=== PATIENT | male | born 1965 | race Asian ===

== ENCOUNTER 2020-02-03 16:47 | Emergency (ER) | payer SELFPAY ==
[2020-02-03] MEDS ORDERED: KETOROLAC 30 MG/1 ML INJ IV ONE (17:13)
[2020-02-03] MEDS ORDERED: HYDROmorphone 1 MG/1 ML INJ IV ONE ×2 (17:13→17:46)
[2020-02-03] MEDS ORDERED: SODIUM CHLORIDE 0.9% 1000 ML 1,000 ML IV ONE ×2 (17:13)
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
[2020-02-03 18:41] LABS: Hematocrit 35.9 % (35.5-45.6); Hemoglobin 11.8 gm/dl (11.8-15.2); Mean Corpuscular HGB Conc 33 % (32-34); Mean Corpuscular Volume 79 fl (84-94); Platelet Count 244 K/mm3 (140-440); Red Blood Count 4.54 M/mm3 (3.65-5.03)
[2020-02-03 18:50] LABS: BUN/Creatinine Ratio 20; Blood Urea Nitrogen 16 mg/dL (9-20); Calcium 9.3 mg/dL (8.4-10.2); Hemolysis Index 2
[2020-02-03 18:54] LABS: Basophils # (Auto) 0.1 K/mm3 (0.0-0.1); Basophils % (Auto) 0.5 % (0.0-1.8); Eosinophils # (Auto) 0.2 K/mm3 (0.0-0.4); Eosinophils % (Auto) 1.3 % (0.0-4.3); Lymphocytes % (Auto) 32.3 % (13.4-35.0); Monocytes # (Auto) 1.1 K/mm3 (0.0-0.8); Monocytes % (Auto) 8.6 % (0.0-7.3)
[2020-02-03] MEDS ORDERED: LACTATED RINGERS 1,000 ML IV SCH (19:00)
[2020-02-03] MEDS ORDERED: SODIUM CHLORIDE IRRI 500 ML 500 ML IR ONE (19:25)
[2020-02-03 23:31] VITALS: BP 148/90
== END 2020-02-03 20:05 | disposition designated cancer center or children's hospital (05) ==
LOC: ED 16:47
DX: T23.202A Burn of second degree of left hand, unspecified site, initial encounter (principal); T23.201A Burn of second degree of right hand, unspecified site, initial encounter; T24.201A Burn of second degree of unspecified site of right lower limb, except ankle and foot, initial encounter; T31.10 Burns involving 10-19% of body surface with 0% to 9% third degree burns; I10 Essential (primary) hypertension; E11.9 Type 2 diabetes mellitus without complications; Z79.899 Other long term (current) drug therapy; X08.8XXA Exposure to other specified smoke, fire and flames, initial encounter; Y93.89 Activity, other specified; Y92.89 Other specified places as the place of occurrence of the external cause; Y99.8 Other external cause status
CPT/HCPCS: 16000; 36415; 80048; 85025; 96361; 96374; 96375; 99285; J1170; J1885; J7030; J7120